=== PATIENT | female | born 1935 | race Caucasian/White ===

== ENCOUNTER 2024-08-04 12:00 | Emergency (ER) | payer SELFPAY ==
[2024-08-04 12:02] VITALS: BP 164/62
[2024-08-04 12:22] VITALS: BMI 20.1
--- NOTE | 2024-08-04 12:26 | EDRN ---
Shari GÓMEZ in room w/ pt and daughter at this time.
--- NOTE | 2024-08-04 12:36 | ED.GENMED ---
History of Present Illness
General
Chief Complaint: Wound Check/Suture Removal
Source: patient
Exam Limitations: none
Time Seen by Provider: 08/04/24 12:22
History of Present Illness
History of Present Illness:
89yoF presenting with her daughter for concern for retained staple. Patient was seen at [facility] 1 week ago for a scalp laceration. Bharath were applied. She was verbally told that 3 bharath were placed but 4 bharath were documented. Patient
followed up with her PCP today for staple removal and PCP was only able to find 3 bharath. She was told to go to the ED for an x-ray for concern for retained staple.
Phy Exam
General Physical Exam
General Presentation: well appearing and no apparent distress
General Skin: warm and dry
General Habitus: normal
General Mental: alert
ENT Exam
ENT Exam: other (R parietal laceration noted. No visible or palpable bharath.)
Neurological Exam
Neurological Exam: alert
Abdirizak Coma Scale
Eye Opening: Spontaneous
Verbal Response: Oriented
Motor Response: Obeys Commands
GCS Total Score: 15
Skin Exam
Skin Exam: normal color and warm/dry
Psychiatric Exam
Psychiatric Exam: normal mood/affect
Course
Orders/Labs/Results
Orders:
Orders
08/04/24 12:00
Skull Complete 4 View CR [CR Skull Complete Min 4 Views*] Urgent
Comment:
Reason For Exam: possible foreign body
Vital Signs
Initial and Last Documented VS:
Initial Vital Signs
Temp Pulse Resp BP Pulse Ox
97.9 F 65 19 164/62 99
08/04/24 12:02 08/04/24 12:02 08/04/24 12:02 08/04/24 12:02 08/04/24 12:02
Last Documented Vital Signs
Temp Pulse Resp BP Pulse Ox
97.9 F 64 16 156/56 98
08/04/24 12:02 08/04/24 13:45 08/04/24 13:45 08/04/24 13:45 08/04/24 13:45
MDM/Problems Addressed
Differential Diagnosis Includes:
89yoF here for possible retained staple. Went to PCP for staple removal and they were only able to find 3 bharath and 4 were documented. There is no staple seen on exam. X-rays done for completeness which are negative for foreign bodies. Patient
discharged in stable condition.
*Pulse Oximetry
SaO2: 99
Oxygen Mode of Delivery: Room air
*Critical Care Note
Total Time (30-74mins, 75-104mins- exclusive of procedures): Not Applicable
ED Attending Note
-
Portions of this chart may have been created with voice recognition software.� Occasional wrong word or��sound alike� substitutions may have occurred due to the inherent limitations of voice recognition software.
Discharge Plan
Departure
Patient Disposition: Home (Routine Discharge)
Date of Disposition: 08/04/24
Time of Disposition: 13:40
Patient with high blood pressure during this ER visit?: Yes
Discharge Problem:
Visit for wound check
Instructions: Wound Care (DC)
Activity Restrictions/Additional Instructions:
X-ray did not show any remaining bharath.
Return to the ER with any signs of infection.
Interventions
Interventions:
*Risk Screen - Suicide Last Done: 08/04/24 12:02
*General Assessment Last Done: 08/04/24 12:23
*Neglect/Abuse Screening Last Done: 08/04/24 12:02
*ED- Fall Risk Assessment Last Done: 08/04/24 12:23
*ED COVID-19 Vaccine History Last Done: 08/04/24 12:23
*Nursing Disposition Last Done: 08/04/24 13:47
ED-Skin Assessment Last Done: 08/04/24 12:24
Discharge Date and Time
Discharge Date/Time: 08/04/24 13:47
Print Language: CITIZEN [place]
[2024-08-04 13:45] VITALS: BP 156/56
== END 2024-08-04 13:47 | disposition home or self-care (01) ==
LOC: EMR 12:00
PROVIDERS: EMERGENCY PHYSICIAN Emergency Medicine
DX: S01.01XD Laceration without foreign body of scalp, subsequent encounter (principal); X58.XXXD Exposure to other specified factors, subsequent encounter
CPT/HCPCS: 99283; 70260